=== PATIENT | female | born 1995 | race Caucasian/White ===

== ENCOUNTER 2018-10-19 23:24 | Inpatient (IN) | payer BC ==
[2018-10-20 00:01] LABS: PLATELET COUNT 351 10^3/uL (150-400)
--- NOTE | 2018-10-20 00:41 | EDPHY ---
H & P Stated Complaint: SI with plan to OD on pills and cut herself Time Seen by Provider: 10/20/18 00:23 HPI/ROS: HPI The patient presents with suicidal ideation with plan to slit her wrists an overdose on her pills. She says she has been feeling suicidal for the last several weeks with increasing suicidal thoughts and self-harm including cutting , head slamming. She thinks her symptoms became worse when she returned from vacation 2 days ago. She had hoped that this summer she would be able to get help for her borderline personality disorder, but has had some difficulty finding resources for this. This is made her feel more depressed and led to thoughts of hurting herself. She is taking Lamictal and Vyvanse prescribed by [facility] where she sees a psychiatrist. She does admit to alcohol use today. REVIEW OF SYSTEMS 10 systems were reviewed and negative with the exception of the elements mentioned in the history of present illness. PMHx: Borderline personality disorder, bipolar disorder Soc Hx: [employer] student, lives with 3 roommates, works part- time and is taking summer classes, alcohol use PHYSICAL General Appearance: Alert, no distress Eyes: Pupils equal and round no pallor or injection ENT, Mouth: Mucous membranes moist Respiratory: There are no retractions, lungs are clear to auscultation Cardiovascular: Regular rate and rhythm Gastrointestinal: Abdomen is soft and non-tender, no masses, bowel sounds normal Neurological: A&O, moves all extremities Skin: Warm and dry, no rashes Musculoskeletal: Neck is supple non tender Extremities: symmetrical, full range of motion Psychiatric: Patient is oriented X 3, there is no agitation Source: Patient Exam Limitations: No limitations - Personal History LMP (Females 10-55): Unknown Current Tetanus Diphtheria and Acellular Pertussis (TDAP): Yes - Medical/Surgical History Hx Asthma: No Hx Chronic Respiratory Disease: No Hx Diabetes: No Hx Cardiac Disease: No Hx Renal Disease: No Hx Cirrhosis: No Hx Alcoholism: No Hx HIV/AIDS: No Hx Splenectomy or Spleen Trauma: No Other PMH: Bipolar d/o, depression, anxiety, PTSD - Social History Smoking Status: Never smoked Constitutional: Initial Vital Signs Temperature (C) 36.9 C 10/19/18 23:39 Heart Rate 117 H 10/19/18 23:39 Respiratory Rate 18 10/19/18 23:39 Blood Pressure 134/87 H 10/19/18 23:39 O2 Sat (%) 96 10/19/18 23:39 O2 Delivery Mode Room Air Allergies/Adverse Reactions: Penicillins Allergy (Verified 10/19/18 23:38) Home Medications: Medication Instructions Recorded Lamictal 10/19/18 Vyvanse 10/19/18 Xanax 10/19/18 Medical Decision Making Differential Diagnosis: 23-year-old female with history of bipolar disorder, borderline personality disorder per self presents with increasing suicidal thoughts over the last several days, now with plan to cut her wrists an overdose on her medications. Plan to place on M1 hold. Differential diagnosis includes suicidal ideation related to worsening bipolar disorder, alcohol intoxication, acute stress response. 6:30 a.m.- Patient has been accepted to our behavioral health unit [facility] by [facility]. - Data Points Laboratory Results: Laboratory Results 10/19/18 23:50 10/19/18 23:50 10/20/18 10/19/18 10/19/18 00:00 23:50 23:50 WBC RBC Hgb Hct MCV MCH MCHC RDW Plt Count MPV Neut % (Auto) Lymph % (Auto) Racine % (Auto) Eos % (Auto) Baso % (Auto) Nucleat RBC Rel Count Absolute Neuts (auto) Absolute Lymphs (auto) Absolute Monos (auto) Absolute Eos (auto) Absolute Basos (auto) Absolute Nucleated RBC Immature Gran % Immature Gran # Sodium 142 mEq/L mEq/L (135-145) Potassium 4.3 mEq/L mEq/L (3.5-5.2) Chloride 110 mEq/L mEq/L (97-110) Carbon Dioxide 16 mEq/l L mEq/l (22-31) Anion Gap 16 mEq/L H mEq/L (6-14) BUN 6 mg/dL L mg/dL (7-23) Creatinine 0.6 mg/dL mg/dL (0.6-1.0) Estimated GFR > 60 Glucose 92 mg/dL mg/dL (70-100) Calcium 9.4 mg/dL mg/dL (8.5-10.4) Beta HCG, Qual NEGATIVE Urine Opiates Screen NEGATIVE (NEGATIVE) Urine Barbiturates NEGATIVE (NEGATIVE) Ur Phencyclidine Scrn NEGATIVE (NEGATIVE) Ur Amphetamine Screen NON-NEGATIVE H (NEGATIVE) U Benzodiazepines Scrn NEGATIVE (NEGATIVE) Urine Cocaine Screen NEGATIVE (NEGATIVE) U Marijuana (THC) Screen NEGATIVE (NEGATIVE) Ethyl Alcohol 170 mg/dL H mg/dL (0-10) 10/19/18 23:50 WBC 8.42 10^3/uL 10^3/uL (3.80-9.50) RBC 4.88 10^6/uL 10^6/uL (4.18-5.33) Hgb 14.9 g/dL g/dL (12.6-16.3) Hct 43.8 % % (38.0-47.0) MCV 89.8 fL fL (81.5-99.8) MCH 30.5 pg pg (27.9-34.1) MCHC 34.0 g/dL g/dL (32.4-36.7) RDW 12.5 % % (11.5-15.2) Plt Count 351 10^3/uL 10^3/uL (150-400) MPV 10.2 fL fL (8.7-11.7) Neut % (Auto) 53.8 % % (39.3-74.2) Lymph % (Auto) 34.4 % % (15.0-45.0) Racine % (Auto) 6.4 % % (4.5-13.0) Eos % (Auto) 3.9 % % (0.6-7.6) Baso % (Auto) 1.3 % % (0.3-1.7) Nucleat RBC Rel Count 0.0 % % (0.0-0.2) Absolute Neuts (auto) 4.52 10^3/uL 10^3/uL (1.70-6.50) Absolute Lymphs (auto) 2.90 10^3/uL 10^3/uL (1.00-3.00) Absolute Monos (auto) 0.54 10^3/uL 10^3/uL (0.30-0.80) Absolute Eos (auto) 0.33 10^3/uL 10^3/uL (0.03-0.40) Absolute Basos (auto) 0.11 10^3/uL H 10^3/uL (0.02-0.10) Absolute Nucleated RBC 0.00 10^3/uL 10^3/uL (0-0.01) Immature Gran % 0.2 % % (0.0-1.1) Immature Gran # 0.02 10^3/uL 10^3/uL (0.00-0.10) Sodium Potassium Chloride Carbon Dioxide Anion Gap BUN Creatinine Estimated GFR Glucose Calcium Beta HCG, Qual Urine Opiates Screen Urine Barbiturates Ur Phencyclidine Scrn Ur Amphetamine Screen U Benzodiazepines Scrn Urine Cocaine Screen U Marijuana (THC) Screen Ethyl Alcohol Departure - Departure Disposition: [facility] IP Clinical Impression: Suicidal ideation Condition: Fair Referrals: NONE *PRIMARY CARE P,. [Primary Care Provider] - As per Instructions
--- NOTE | 2018-10-20 03:11 | ASMTLCPROG ---
Notes Note: Notes: This data analyst report writer left a message for consultation with Dr. Novoa @ 02:20. Date Signed: 10/20/2018 03:10 AM Electronically Signed By:Ellen Martinez. MAURA,STEPHANIEc,R-DMT
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
--- NOTE | 2018-10-20 07:21 | ASMTTCLDSP ---
TLC Discharge Disposition Disposition: Answers: Admit Disposition Notes: Notes: Admit [facility]. Discharge Concerns/Recommendations: Notes: In consultation with [facility] ED physician, Sherry Rivero MD, and on-call advanced psychiatric nurse, James Astudillo APN, both concurred that pt appears to meet 27-65 criteria requiring psychiatric hospitalization as pt appears to be an imminent risk of harm to self due to a mental illness condition. Pt was read the Patient Rights and Responsibilities Statement on 10/20/18 at 0700, original placed on chart, and was given photocopy of Rights. Pt signed the Patient Rights. Pt was given the [facility] prohibited belongings list while in the ED. Was patient given the Answers: Yes Inpatient Behavioral Health Prohibited Belongings List while in the ED? For inpatient James Astudillo APN admission, the following psychiatrist agreed to accept patient for admission to Behavioral Health ([facility]): Type of Hold: Answers: M1/72-hour Hold Hold initiated by: Answers: ED Physician Date Signed: 10/20/2018 07:20 AM Electronically Signed By:Axel Ozuna
[2018-10-20] MEDS ORDERED: ACETAMINOPHEN 325 MG TAB PO PRN (12:21)
[2018-10-20] MEDS ORDERED: MAG HYDROX/AL HYDROX/SIMETH 30 ML UDCUP PO PRN (12:21)
[2018-10-20] MEDS ORDERED: MAGNESIUM HYDROXIDE 30 ML UDCUP PO PRN (12:21)
[2018-10-20] MEDS ORDERED: NICOTINE POLACRILEX 2 MG GUM B PRN (12:21)
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
--- NOTE | 2018-10-20 13:44 | PDGENHP ---
History and Physical - Chief Complaint suicidality - History of Present Illness 23 yo female with h/o bipolar disorder and borderline personality disorder presented to the ED with suicidal ideation. She drank alcohol yesterday and became more depressed and hopeless. Had thoughts of slitting her wrists. She has been managed by [facility] and takes Lamictal and Vyvanse. She says she has had suicidal thoughts in the past and usually they pass quickly. She acknowledges the acute alcohol intoxication is a depressant and may have contributed to her hopelessness. She denies other drug use. She is studying psychology at . She is admitted to the Behavioral Health unit for mood stabilization. She currently denies thoughts of harming herself and feels better today. History Information - Allergies/Home Medication List Allergies/Adverse Reactions: Penicillins Allergy (Verified 10/20/18 09:36) Other-Enter Comments Home Medications: Lisdexamfetamine Dimesylate [Vyvanse] 40 mg PO DAILY PRN 10/19/18 [Last Taken Unknown] lamoTRIgine [LamICTAL 100 MG (*)] 200 mg PO DAILY 10/19/18 [Last Taken 10/19/18] Etonogestrel/Ethinyl Estradiol [Nuvaring Vaginal Ring] 1 each VG Q30D 10/20/18 [ Last Taken Unknown] I have personally reviewed and updated: family history, medical history, social history, surgical history - Past Medical History Additional medical history: Bipolar disorder. Borderline personality disorder - Surgical History Reports: no pertinent surgical hx - Family History Positive for: CAD - Social History Smoking Status: Never smoked Alcohol Use: Occasionally Drug Use: None Additional social history: student, studying psychology. Review of Systems Review of Systems: ROS: 10pt was reviewed & negative except for what was stated in HPI & below Physical Exam Physical Exam: Temp Pulse Resp BP Pulse Ox 36.8 C 98 14 118/82 H 95 10/20/18 11:48 10/20/18 11:48 10/20/18 11:48 10/20/18 11:48 10/20/18 11:48 Constitutional: no apparent distress Eyes: PERRL Ears, Nose, Mouth, Throat: moist mucous membranes Cardiovascular: regular rate and rhythym Respiratory: no respiratory distress, clear to auscultation Gastrointestinal: normoactive bowel sounds, soft, non-tender abdomen Skin: warm Musculoskeletal: full muscle strength Neurologic: AAOx3 Psychiatric: interacting appropriately Lab Data & Imaging Review 10/19/18 23:50 10/19/18 23:50 WBC 8.42 10^3/uL (3.80-9.50) 10/19/18 23:50 RBC 4.88 10^6/uL (4.18-5.33) 10/19/18 23:50 Hgb 14.9 g/dL (12.6-16.3) 10/19/18 23:50 Hct 43.8 % (38.0-47.0) 10/19/18 23:50 MCV 89.8 fL (81.5-99.8) 10/19/18 23:50 MCH 30.5 pg (27.9-34.1) 10/19/18 23:50 MCHC 34.0 g/dL (32.4-36.7) 10/19/18 23:50 RDW 12.5 % (11.5-15.2) 10/19/18 23:50 Plt Count 351 10^3/uL (150-400) 10/19/18 23:50 MPV 10.2 fL (8.7-11.7) 10/19/18 23:50 Neut % (Auto) 53.8 % (39.3-74.2) 10/19/18 23:50 Lymph % (Auto) 34.4 % (15.0-45.0) 10/19/18 23:50 Gage % (Auto) 6.4 % (4.5-13.0) 10/19/18 23:50 Eos % (Auto) 3.9 % (0.6-7.6) 10/19/18 23:50 Baso % (Auto) 1.3 % (0.3-1.7) 10/19/18 23:50 Nucleat RBC Rel Count 0.0 % (0.0-0.2) 10/19/18 23:50 Absolute Neuts (auto) 4.52 10^3/uL (1.70-6.50) 10/19/18 23:50 Absolute Lymphs (auto) 2.90 10^3/uL (1.00-3.00) 10/19/18 23:50 Absolute Monos (auto) 0.54 10^3/uL (0.30-0.80) 10/19/18 23:50 Absolute Eos (auto) 0.33 10^3/uL (0.03-0.40) 10/19/18 23:50 Absolute Basos (auto) 0.11 10^3/uL (0.02-0.10) H 10/19/18 23:50 Absolute Nucleated RBC 0.00 10^3/uL (0-0.01) 10/19/18 23:50 Immature Gran % 0.2 % (0.0-1.1) 10/19/18 23:50 Immature Gran # 0.02 10^3/uL (0.00-0.10) 10/19/18 23:50 Sodium 142 mEq/L (135-145) 10/19/18 23:50 Potassium 4.3 mEq/L (3.5-5.2) 10/19/18 23:50 Chloride 110 mEq/L (97-110) 10/19/18 23:50 Carbon Dioxide 16 mEq/l (22-31) L 10/19/18 23:50 Anion Gap 16 mEq/L (6-14) H 10/19/18 23:50 BUN 6 mg/dL (7-23) L 10/19/18 23:50 Creatinine 0.6 mg/dL (0.6-1.0) 10/19/18 23:50 Estimated GFR > 60 10/19/18 23:50 Glucose 92 mg/dL (70-100) 10/19/18 23:50 Calcium 9.4 mg/dL (8.5-10.4) 10/19/18 23:50 Beta HCG, Qual NEGATIVE 10/19/18 23:50 Urine Opiates Screen NEGATIVE (NEGATIVE) 10/20/18 00:00 Urine Barbiturates NEGATIVE (NEGATIVE) 10/20/18 00:00 Ur Phencyclidine Scrn NEGATIVE (NEGATIVE) 10/20/18 00:00 Ur Amphetamine Screen NON-NEGATIVE (NEGATIVE) H 10/20/18 00:00 U Benzodiazepines Scrn NEGATIVE (NEGATIVE) 10/20/18 00:00 Urine Cocaine Screen NEGATIVE (NEGATIVE) 10/20/18 00:00 U Marijuana (THC) Screen NEGATIVE (NEGATIVE) 10/20/18 00:00 Ethyl Alcohol 170 mg/dL (0-10) H 10/19/18 23:50 Assessment & Plan Assessment: Suicidal ideation (Acute) Bipolar disorder Borderline personality disorder AGMA Acute alcohol intoxication Mood stabilization per primary psych team. I suspect her acute alcohol intoxication contributed to her worsening depression and suicidality. In addition, her anion gap metabolic acidosis is likely to due alcohol and possibly starvation ketosis. Now that she is sober and eating and drinking, I anticipate this will self-correct. No other medical interventions indicated at this time.
--- NOTE | 2018-10-20 14:00 | ASMTCMCOM ---
CM Note CM Note Notes: CC met with pt. to complete MTP. Pt. reports having "quite a few" diagnosis, and wanting a clearer idea of her diagnosis. Pt. reports liking her current medications, but being open to discussing other options. Pt. reports she is currently finishing her BA degree classes over this summer. Pt. reports seeing a psychiatrist at [facility], but believing she only has one more available appointment. Pt. stated she is interested in providers in the [place] area. Pt. reports having a PCP, but is not able to remember their name, only that they work in [place]. Pt. denied any current legal issues. Pt. reports drinking alcohol "couple of times with friends" adding she does not feel her drinking is an issue. Pt. denied using THC and all other substances. Pt. reports this being her first mental health hospitalization Pt. denied any current SI. Pt. presents as alert, calm, good eye contact, slightly unkempt, polite and cooperative. Pt. arrived on the unit this morning. CC to look for outpatient providers within pt's insurance. Date Signed: 10/20/2018 01:59 PM Electronically Signed By:Meseret Singleton.MAURA,POLISHING MACHINE OPERATOR HELPER,NCC
[2018-10-20] MEDS ORDERED: NON-FORMULARY NEW DRUG (Lisdexamfetamine Dimesylate [Vyvanse] 40 MG) PO PRN (16:54)
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
[2018-10-20] MEDS ORDERED: lamoTRIgine 100 MG TAB PO SCH (21:00)
[2018-10-20] MEDS: LORazepam 0.5 MG TAB PO PRN (21:23)
[2018-10-21] MEDS ORDERED: lamoTRIgine 100 MG TAB PO SCH ×2 (09:00→22:26)
--- NOTE | 2018-10-21 09:35 | PDMN ---
Medical Necessity Medical necessity: Pt meets inpt criteria per MD order and [facility] [id number], Bipolar Disorders, Adult: Inpatient Care,4 days. 23 y/o w hx/depression and self -injurious behaviors presented to ED w/increased anxiety/difficulty coping and suicidal ideation, placed on M1 hold due to risk of harm to self, admitted w/ bipolar 2 disorder, most recent episode depressed, severe, without psychosis.
--- NOTE | 2018-10-21 12:59 | ASMTCMCOM ---
CM Note CM Note Notes: CC met with ct to review master treatment plan. Ct reviewed the plan and signed it. Date Signed: 10/21/2018 12:58 PM Electronically Signed By:Isabelle Carmen. CARLA
--- NOTE | 2018-10-21 18:47 | SOAPPROG ---
SOAP Progress Note Assessment/Plan: Assessment: Plan: Subjective: Pt seen, discussed with staff, interviewed in Treatment Team meeting. She reports feeling "a lot better." Discussed medications and she agrees to increase Lamictal to 250mg on route to 300mg. She states she is more hopeful and would like to d/c tomorrow when her hold is up. She continues to request individual therapist in the community. MSE: Calm, coop. Affect is bright, stable, approp. Mood is "a lot better." TP is linear, goal-directed. TC reveals no psychosis. Denies active SI at this time. Objective: Vital Signs Temp Pulse Resp BP Pulse Ox 36.9 C 94 14 119/82 H 95 10/21/18 06:00 10/21/18 06:00 10/21/18 06:00 10/21/18 06:00 10/21/18 06:00 - Time Spent With Patient Time Spent With Patient: 25" ICD10 Worksheet Patient Problems: Problems Problem Status Onset Suicidal ideation Acute
[2018-10-21] MEDS: LORazepam 0.5 MG TAB PO PRN (22:36)
[2018-10-22 06:08] VITALS: BP 108/82
--- NOTE | 2018-10-22 11:34 | SOAPPROG ---
SOAP Progress Note Assessment/Plan: Assessment: Plan: PER DR. LANE: Pt seen, discussed with staff, interviewed in Treatment Team meeting. She reports feeling "a lot better." Discussed medications and she agrees to increase Lamictal to 250mg on route to 300mg. She states she is more hopeful and would like to d/c tomorrow when her hold is up. She continues to request individual therapist in the community. MSE: Calm, coop. Affect is bright, stable, approp. Mood is "a lot better." TP is linear, goal-directed. TC reveals no psychosis. Denies active SI at this time. 10/22/18 11:30 Slept 8hr. per checkout from Dr. Lane: pt self presented due to urge for self-harm, hx of Adderall and Lamictal for several years Had Lamictal increased from 200 to 250mg during hosp stay, with plan to ultimately incr to 300. Has outpt psych at [facility]. Objective: Vital Signs Temp Pulse Resp BP Pulse Ox 37.1 C 96 15 108/82 H 97 10/22/18 06:00 10/22/18 06:00 10/22/18 06:00 10/22/18 06:00 10/22/18 06:00 ICD10 Worksheet Patient Problems: Problems Problem Status Onset Suicidal ideation Acute
--- NOTE | 2018-10-22 13:33 | ASMTCMCOM ---
CM Note CM Note Notes: CC checked in with ct. who reported that she is doing fine and is ready to be discharged. Ct. denied current SI. Ct. is planning on returning home and making preparations for summer classes at which she is going to start on Wed. Ct. reported that her friends are around and that they are very supportive of her. Ct. will remain in [place] until the end of November. She is motivated to start DBT and has an appointment with Junito Rosales on 10/25/18. Date Signed: 10/22/2018 01:32 PM Electronically Signed By:Alexandra Butler.[facility]
[2018-10-23] MEDS ORDERED: lamoTRIgine 25 MG TAB PO SCH (09:00)
[2018-10-23] MEDS ORDERED: lamoTRIgine 100 MG TAB PO SCH (09:00)
--- NOTE | 2018-10-26 19:31 | BDS ---
[f rep st] BEHAVIORAL HEALTH DISCHARGE SUMMARY REASON FOR ADMISSION: Patient is a 23-year-old female with a past history of mood issues and self-harming. She had been diagnosed in the past with bipolar disorder and treated with mood stabilizers that she did not tolerate atypicals or antidepressants well. She has also been treated for attention deficit/hyperactivity disorder with Vyvanse and has done well with this. Her current combination on admission was Vyvanse and Lamictal. She stated that she had been compliant with her medicines, but had been stressed in regard to graduation from college and had very strong urges to self-harm. She specifically was thinking of cutting and came to the hospital due to concerns for her safety. A full description of the events preceding admission can be found in her admission history dated 10/20/2018. ADMITTING DIAGNOSES: 1. Attention deficit/hyperactivity disorder, combined type by history. 2. Bipolar 2 disorder, most recent episode depressed, severe, without psychosis. 3. Suicidal ideation. 4. Possible posttraumatic stress disorder. 5. Academic stress. 6. Financial stress. 7. Occupational stress. ADMITTING PHYSICAL EXAMINATION: Performed by Dr. Zee Montesinos revealed no acute physical findings. ADMISSION LABORATORY: CBC was normal. Serum chemistries were essentially normal, though she had a high anion gap at 16. Lipid profile showed triglycerides up at 308 and cholesterol high at 206. Beta hCG was negative. Urine drug screen was positive for amphetamines and her alcohol was 170. HOSPITAL COURSE: The patient was admitted to the [facility] inpatient unit on an M1 hold. She was pleasant, cooperative, and interactive. She seemed generally motivated for positive change and stated that her primary goal was safety, but also to help with a general sense of over activation and anxiety. She states that this was influenced by the stresses of graduation and a transition ending in December when she has to complete her summer school to get all of her graduation credits and then move out of her current living situation to [facility] where she will start a new job that she has not started looking for and so forth. She stated that she believed her mood was unstable and had a lot of mood intensity. I discussed with her the possibility of re- trying low-dose atypical or SSRI understanding the potential risks of antidepressant therapy for her. I also discussed with her titration of the Lamictal which she preferred to do. We increased from 200 to 250 mg and she tolerated this well. The plan, as stated to her at the time of the discharge, was to go ultimately to 300, but she was instructed to discuss this with her outpatient provider. Patient's hospitalization was uncomplicated. She was active and participated in all therapies. She engaged in no self-harming in the hospital. She was seen on the day of discharge by Dr. Stefanie Morales who noted her to be euthymic and stable with no suicidal thoughts. CONDITION ON DISCHARGE: Stable. Her affect was euthymic stable and appropriate. She was having no suicidal thoughts. DISCHARGE DIAGNOSES: 1. Bipolar II disorder, most recent episode depressed, severe, without psychosis. 2. Attention deficit hyperactivity disorder, combined type. 3. Suicidal ideation, resolved. 4. Possible posttraumatic stress disorder. 5. Academic stress. 6. Financial stress. 7. Occupational stress. 8. Tenuous housing. DISPOSITION: Patient left the hospital of her own accord to return to home. Followup is with providers at [facility] including her psychiatric nurse practitioner, Cristina Mishra. I left a message for Ms. Robles at the time of discharge. She also had voiced an interest in participating in DBT programs through the [facility] and a referral was made there. The patient's attitude at time of discharge was positive with forward thinking. There were no labs or studies pending at the time of discharge. The patient was discharged at the expiration of her M-1 hold. The patient was a full code throughout her stay. The patient was given alcohol, tobacco, cannabis, and metabolic screens and was counseled in brief interventional therapy regarding her metabolic status and her likely excessive use of alcohol. The patient voiced willingness to follow up with these as an outpatient. /[id number]/MODL MTDD
== END 2018-10-22 18:41 | disposition home or self-care (01) | DRG 885 ==
LOC: EDBD → BBEH 10-20 10:20
PROVIDERS: ADMIT Psychiatry & Neurology Behavioral Neurology & Neuropsychiatry; ATTEND Psychiatry & Neurology Behavioral Neurology & Neuropsychiatry
DX: F31.81 Bipolar II disorder (principal); F90.9 Attention-deficit hyperactivity disorder, unspecified type; R45.851 Suicidal ideations; F43.10 Post-traumatic stress disorder, unspecified; F60.3 Borderline personality disorder; F10.129 Alcohol abuse with intoxication, unspecified; Z59.8 Other problems related to housing and economic circumstances
CPT/HCPCS: 80305; G0480